=== PATIENT | female | born 1960 | race Caucasian/White ===

== ENCOUNTER 2025-05-31 20:24 | Emergency (ER) | payer MEDICAID ==
[~2025-05-31] VITALS: Ht 167.6 cm; Wt 89.1 kg
[2025-05-31 20:48] VITALS: TEMP 98.5
[2025-05-31] MEDS ORDERED: PROZ10CA7 PO (20:48)
[2025-05-31] MEDS ORDERED: METF500T13 PO (20:48)
[2025-05-31] MEDS ORDERED: ROSU10TA61 PO (20:48)
[2025-05-31] MEDS ORDERED: ZOLP-533 PO (20:48)
[2025-05-31] MEDS ORDERED: VALI5TAB PO (20:48)
[2025-05-31 21:29] LABS: BASO # 0.1 10^3/uL (0.0-0.2); BASO % 0.9 % (0.0-1.0); EOS # 0.3 10^3/uL (0.0-0.5); EOS % 6.3 % (0.0-3.0); LYMPH # 1.4 10^3/uL (1.5-5.0); LYMPH % 25.3 % (24.0-44.0); MONO # 0.5 10^3/uL (0.0-0.8); MONO % 9.6 % (2.0-8.0); NEUTROPHILS # 3.1 10^3/uL (1.5-8.5); NEUTROPHILS % 57.7 % (36.0-66.0); PLATELET COUNT, AUTOMATED 295 10^3/uL (150-450)
[2025-05-31 21:53] LABS: CK-MB VALUE MASS 1.9 NG/ML (<3.6)
[2025-05-31 21:55] LABS: CALCIUM LEVEL 9.0 MG/DL (8.3-10.6); CARBON DIOXIDE LEVEL 26 MMOL/L (20-31); CHLORIDE LEVEL 101 MMOL/L (98-107); CREATININE FOR GFR 0.67 MG/DL (0.55-1.30); GLOMERULAR FILTRATION RATE > 90.0 (>45); POTASSIUM SERUM 4.4 MMOL/L (3.5-5.1); SODIUM LEVEL 141 MMOL/L (136-145)
[2025-05-31 21:58] LABS: CPK CREATINE PHOSPHOKINASE 46 U/L (34-145); MB/CK RELATIVE INDEX 4.13 (< OR =4)
[2025-05-31 22:53] LABS: CK-MB VALUE MASS 1.2 NG/ML (<3.6)
[2025-05-31 22:55] LABS: CPK CREATINE PHOSPHOKINASE 28.0 U/L (34-145); MB/CK RELATIVE INDEX 4.28 (< OR =4)
[2025-05-31] MEDS ORDERED: ISOVUE-370 76% 100 ML VIAL As Ordered ONE (23:14)
[2025-06-01] MEDS: ONDANSETRON 4MG 2ML VIAL IV ONE (00:21)
[2025-06-01] MEDS: NS (Normal Saline) 0.9% 1,000 ML IV ONE (00:21)
[2025-06-01] MEDS: MORPHINE 4 MG/ML 1 ML VIAL IV ONE (00:22)
[2025-06-01] MEDS: PANTOPRAZOLE 40MG VIAL IV ONE (00:57)
[2025-06-01] MEDS: LIDOCAINE VISCOUS 2% SOLN 15 ML UDC PO ONE (00:57)
[2025-06-01] MEDS ORDERED: HYDR-3713 PO (01:45)
[2025-06-01] MEDS ORDERED: PROM25TA12 PO (01:45)
[2025-06-01] MEDS: PROMETHAZINE 25MG/ML 1ML VIAL IV ONE (02:35)
[2025-06-01 03:15] VITALS: BP 132/77; O2SAT 93
[2025-06-01] MEDS: ONDANSETRON 4MG ORAL DISINTEGRATING TAB PO ONE (03:16)
[2025-06-01] MEDS: NORCO 5/325MG TABLET (HOME DOSE PACK) PO ONE (03:16)
== END 2025-06-01 03:23 | disposition home or self-care (01) ==
LOC: M ED 20:24
DX: K44.9 Diaphragmatic hernia without obstruction or gangrene (principal); K21.9 Gastro-esophageal reflux disease without esophagitis; E11.9 Type 2 diabetes mellitus without complications; E78.5 Hyperlipidemia, unspecified; F32.A Depression, unspecified; Z79.1 Long term (current) use of non-steroidal anti-inflammatories (NSAID); Z79.899 Other long term (current) drug therapy; Z79.4 Long term (current) use of insulin
CPT/HCPCS: 71045; 71275; 80048; 82550; 82553; 84484; 85025; 93041; 94760; 96361; 96374; 96375; 99285; J2405; J2470; J2550; Q9967

== ENCOUNTER → 2025-09-02 | Outpatient (CLI) | payer OTHER ==
[~2025-09-02] MED LIST: HYDR-3713 PO; METF500T13 PO; PROM25TA12 PO; PROZ10CA11 PO; ROSU10TA61 PO; VALI5TAB PO; ZOLP-533 PO
== END ==
LOC: M WHC 15:10
PROVIDERS: ATTEND Physician Assistant Medical
DX: Z12.31 Encounter for screening mammogram for malignant neoplasm of breast (principal); Z53.9 Procedure and treatment not carried out, unspecified reason

== ENCOUNTER 2025-09-08 14:06 | Emergency (ER) | payer OTHER ==
[~2025-09-08] VITALS: Ht 160 cm; Wt 89.5 kg
[~2025-09-08 14:06] MED LIST changes: -PANT20TA6 PO
[2025-09-08 14:41] LABS: BASO # 0.0 10^3/uL (0.0-0.2); BASO % 0.4 % (0.0-1.0); EOS # 0.2 10^3/uL (0.0-0.5); EOS % 3.8 % (0.0-3.0); LYMPH # 1.3 10^3/uL (1.5-5.0); LYMPH % 27.4 % (24.0-44.0); MONO # 0.7 10^3/uL (0.0-0.8); MONO % 14.2 % (2.0-8.0); NEUTROPHILS # 2.5 10^3/uL (1.5-8.5); NEUTROPHILS % 53.8 % (36.0-66.0); PLATELET COUNT, AUTOMATED 272 10^3/uL (150-450)
[2025-09-08 15:13] LABS: ALT/SGPT 23.0 U/L (7.0-40); AST/SGOT 16.0 U/L (<34); CALCIUM LEVEL 8.5 MG/DL (8.3-10.6); CARBON DIOXIDE LEVEL 22.0 MMOL/L (20-31); CHLORIDE LEVEL 107.0 MMOL/L (98-107); CK-MB VALUE MASS 1.0 NG/ML (<3.6); CPK CREATINE PHOSPHOKINASE 32.0 U/L (34-145); CREATININE FOR GFR 0.83 MG/DL (0.55-1.30); GLOMERULAR FILTRATION RATE 79.2 (>45); MB/CK RELATIVE INDEX 3.12 (< OR =4); POTASSIUM SERUM 4.0 MMOL/L (3.5-5.1); SODIUM LEVEL 142.0 MMOL/L (136-145)
[2025-09-08 15:17] LABS: FREE T4 0.95 NG/DL (0.89-1.76)
[2025-09-08 16:48] LABS: CK-MB VALUE MASS < 1.0 NG/ML (<3.6)
[2025-09-08 16:49] LABS: CPK CREATINE PHOSPHOKINASE 34 U/L (34-145)
[2025-09-08] MEDS ORDERED: PANT20TA6 PO (17:27)
[2025-09-08] MEDS: ACETAMINOPHEN 500 MG TAB PO ONE (18:54)
[2025-09-08] MEDS: dexAMETHasone 4 MG/ML 1 ML VIAL IV ONE (20:09)
[2025-09-08] MEDS: MAG SULF 1GM/100ML (MAG RUN) 1 GM in IV 1 EA IV ONE (20:10)
[2025-09-08] MEDS ORDERED: ISOVUE-370 76% 100 ML VIAL As Ordered ONE (22:42)
[2025-09-08] MEDS: ONDANSETRON 4MG 2ML VIAL IV ONE (23:47)
[2025-09-08] MEDS: MORPHINE 4 MG/ML 1 ML VIAL IV ONE (23:48)
[2025-09-08] MEDS: LIDOCAINE 5% PATCH TD ONE (23:48)
[2025-09-09 02:23] VITALS: BP 156/89; TEMP 97.6; O2SAT 94
== END 2025-09-09 02:35 | disposition home or self-care (01) ==
LOC: M ED 14:06
DX: M25.511 Pain in right shoulder (principal); R10.13 Epigastric pain; S22.020A Wedge compression fracture of second thoracic vertebra, initial encounter for closed fracture; S22.030A Wedge compression fracture of third thoracic vertebra, initial encounter for closed fracture; S22.040A Wedge compression fracture of fourth thoracic vertebra, initial encounter for closed fracture; S22.050A Wedge compression fracture of T5-T6 vertebra, initial encounter for closed fracture; K57.30 Diverticulosis of large intestine without perforation or abscess without bleeding; J98.11 Atelectasis; I25.84 Coronary atherosclerosis due to calcified coronary lesion; K44.9 Diaphragmatic hernia without obstruction or gangrene; E03.4 Atrophy of thyroid (acquired); E11.9 Type 2 diabetes mellitus without complications; I10 Essential (primary) hypertension; G40.909 Epilepsy, unspecified, not intractable, without status epilepticus; Z86.79 Personal history of other diseases of the circulatory system; Z79.899 Other long term (current) drug therapy; Z79.4 Long term (current) use of insulin; Y92.9 Unspecified place or not applicable; Y93.9 Activity, unspecified; Y99.9 Unspecified external cause status
CPT/HCPCS: 70450; 71046; 71260; 73030; 74177; 80048; 80076; 82550; 82553; 83690; 84439; 84443; 84484; 85025; 93005; 96365; 96366; 96375; 99284; J1100; J2405; J3475; Q9967

== ENCOUNTER → 2025-09-08 | Outpatient (CLI) | payer OTHER ==
[~2025-09-08] MED LIST changes: +PANT20TA6 PO
== END ==
LOC: M WHC 13:07
PROVIDERS: ATTEND Physician Assistant Medical
DX: Z12.31 Encounter for screening mammogram for malignant neoplasm of breast (principal); R92.313 Mammographic fatty tissue density, bilateral breasts; N63.10 Unspecified lump in the right breast, unspecified quadrant

== ENCOUNTER → 2025-10-20 | Outpatient (CLI) | payer OTHER ==
[~2025-10-20] MED LIST changes: +PANT20TA6 PO; -ROSU10TA61 PO; +ROSU10TA90 PO
== END ==
LOC: M WHC 12:53
PROVIDERS: ATTEND Physician Assistant Medical
DX: R92.2 Inconclusive mammogram (principal)

== ENCOUNTER → 2025-10-20 | Outpatient (CLI) | payer OTHER | LOC: M WHC 12:51 | PROVIDERS: ATTEND Physician Assistant Medical | DX: M81.0 Age-related osteoporosis without current pathological fracture (principal) ==